=== PATIENT | male | born 1965 | race Caucasian/White ===

== ENCOUNTER 2024-09-04 11:33 | Emergency (ER) | payer MEDICAID ==
[~2024-09-04] VITALS: Ht 170.2 cm; Wt 77.1 kg
[2024-09-04 12:32] LABS: PLATELET COUNT (AUTO) 149 K/uL (152-348); RED BLOOD CELL COUNT(AUTO) 5.43 MIL/uL (4.06-5.63); RED CELL DISTRIBUTION WIDTH 14.0 % (12.1-16.2); WHITE BLOOD COUNT (AUTO) 5.4 K/uL (3.6-10.2)
[2024-09-04] MEDS: IV NORMAL SALINE 1000 ML BAG IV ONE (12:42)
[2024-09-04 12:44] LABS: CREATININE 1.2 mg/dL (0.6-1.3); SODIUM SERUM 139 mmol/L (136-145); UREA NITROGEN, BLOOD 19 mg/dL (7-18)
[2024-09-04] MEDS ORDERED: FLUO10CA26 PO (12:44)
[2024-09-04 12:50] LABS: ASPARTATE AMINOTRANSFERASE 31 U/L (15-37); TOTAL PROTEIN, SERUM 7.2 g/dL (6.4-8.2)
[2024-09-04] MEDS ORDERED: PRED50TA PO (13:24)
[2024-09-04] MEDS ORDERED: AZIT500T PO (13:24)
[2024-09-04 13:32] VITALS: BP 128/88; TEMP 97.8; O2SAT 100
== END 2024-09-04 13:32 | disposition home or self-care (01) ==
LOC: ER 11:46
DX: R91.8 Other nonspecific abnormal finding of lung field (principal); M79.10 Myalgia, unspecified site; R07.9 Chest pain, unspecified; R19.7 Diarrhea, unspecified; R53.81 Other malaise; E86.0 Dehydration; F32.A Depression, unspecified; I10 Essential (primary) hypertension; Z79.52 Long term (current) use of systemic steroids; Z79.899 Other long term (current) drug therapy; Z20.822 Contact with and (suspected) exposure to COVID-19
CPT/HCPCS: 99285; 71045; 87426; 87804 ×2; 80076; 80048; 82550; 85025; 85730; 84484; 36415; 93005; J7040 ×2; A4606; A4663